=== PATIENT | female | born 1960 | race American Indian/Alaskan Native ===

== ENCOUNTER 2016-12-20 14:58 | Outpatient (CLI) | payer OTHER ==
--- NOTE | 2016-12-20 15:56 | Mammography Report ---
Bilateral mammogram: Compared to 12/17/13. CAD study utilized. Findings: Predominance adipose tissue bilaterally. Focal architectural distortion outer left breast. No mass. Stable right breast asymmetry. No microcalcification. Normal axilla. Impression: New focal architectural distortion left breast. Recommend spot magnification views and sonographic examination if necessary. BI-RADS CATEGORY: 0 = Needs additional imaging evaluation ACR BI-RADS MAMMOGRAPHIC CODES: 0 = Needs additional imaging evaluation; 1 = Negative; 2 = Benign; 3 = Probably benign; 4 = Suspicious; 5 = Malignant; 6 = Known biopsy-proven malignancy COMMENT: 1. Dense breast tissue, i.e., adenosis, fibrocystic changes, etc., may obscure an underlying neoplasm. 2. Approximately 10% of cancers are not detected with mammography. 3. A negative mammography report should not delay biopsy if a clinically suspicious mass is present. COMMENT: Patient follow-up letters are generated in [facility].
== END 2016-12-20 14:59 | disposition home or self-care (01) ==
LOC: MAMMO 14:58
PROVIDERS: ATTEND Obstetrics & Gynecology
DX: Z12.31 Encounter for screening mammogram for malignant neoplasm of breast (principal)
CPT/HCPCS: 77067; G0202

== ENCOUNTER 2017-01-14 07:35 | Outpatient (CLI) | payer OTHER ==
--- NOTE | 2017-01-15 11:11 | Ultrasound Report ---
Diagnostic left mammogram and targeted left breast ultrasound. History: Weak all for asymmetry. Findings: The spot compression image in the CC projection demonstrates effacement of the previously noted asymmetry. No significant findings are seen on the 90degree lateral view. Ultrasound of the lateral half of the left breast demonstrates a 6 x 4 mm ovoid shaped hypoechoic lesion with circumscribed margins and no acoustic shadowing. No definite mammographic correlate is seen. At the 12:30 position 5 cm from the nipple, there is a hyperechoic lesion measuring 1.0 x 0.8 0.6 cm. The margins are smooth with no acoustic shadowing. This is consistent with adipose tissue. Impression: 2 solid nodules, one of which is composed entirely of adipose tissue are described. These have benign sonographic features with no mammographic correlate. The fatty lesion may represent a small lipoma. BI-RADS code: 2. Recommendation: Annual screening.
== END 2017-01-14 07:36 | disposition home or self-care (01) ==
LOC: MAMMO 07:35
PROVIDERS: ATTEND Obstetrics & Gynecology
DX: N63 Unspecified lump in breast (principal); N64.89 Other specified disorders of breast
CPT/HCPCS: 76642; G0206

== ENCOUNTER 2020-05-24 11:23 | Outpatient (CLI) | payer BC ==
--- NOTE | 2020-05-24 14:57 | Mammography Report ---
BILATERAL DIGITAL SCREENING MAMMOGRAM WITH CAD HISTORY: SCREENING MAMMO TECHNIQUE: Routine digital mammographic imaging performed. This examination was interpreted with warren malave benefit of Computer-aided Detection analysis. COMPARISON: 12/20/2016, 12/17/2013. FINDINGS: Breast Density: predominantly fatty breast parenchymal pattern. Digital CC and MLO views demonstrate no mammographic evidence of malignancy. IMPRESSION: No mammographic evidence of malignancy. If the clinical examination remains stable, recommend bilate ral mammogram in approximately one year. BIRADS 1: Negative. FURTHER INFORMATION: According to the [employer], yearly mammograms are recommend ed starting at age 40 and continuing as long as a woman is in good health. Clinical Breast Exams shou ld be part of a periodic health exam-about every 3 years for women in their 20s and 30s and every yea r for women 40 and over. Breast self exam is an option for women starting in their 20s. Any breast ch marcy noted on a breast self exam should be reported promptly to the patient's healthcare provider. Br east MRI is recommended for women with an approximately 20-25% or greater lifetime risk of breast can cer, including women with a strong family history of breast or ovarian cancer and women who have been treated for Hodgkin's disease. A negative Mammography report should not discourage follow up or biopsy of a clinically significant f inding and/or abnormality. Dense breast tissue may obscure small neoplasms. The patient will be entered into a reminder system with a target due date for the next screening mamm ogram. Signer Name: Bhavin Bolton MD Signed: 05/24/2020 2:53 PM Workstation Name: [id number]
== END 2020-05-24 11:24 | disposition home or self-care (01) ==
LOC: MAMMO 11:23
PROVIDERS: ATTEND Obstetrics & Gynecology
DX: Z12.31 Encounter for screening mammogram for malignant neoplasm of breast (principal)
CPT/HCPCS: 77067